=== PATIENT | male | born 1945 | race Caucasian/White ===

== ENCOUNTER → 2019-01-17 09:55 | Outpatient (CLI) | payer MEDICARE, SELFPAY ==
--- NOTE | 2019-01-17 | DI.NM.S_ITS ---
PROCEDURE: NM RENAL FUNCTION W LASIX RADIOPHARMACEUTICAL: 9.5 mCi Tc-99m MAG3 IV and 40 mg furosemide IV. INDICATIONS: HYDRONEPHROSIS TECHNIQUE: The patient was hydrated orally before the examination was begun. After intravenous administration of Tc-99m MAG3, posterior abdominal radionuclide angiogram and sequential (1 minute each frame) renal images were obtained. A time-activity curve for each kidney was generated and analyzed. To evaluate for obstruction, the patient was given 40 mg furosemide via slow intravenous injection after the start of the examination. Sequential images were obtained for up to an additional 20 minutes. COMPARISON: Outside Film, CT, CT IVP, 10/23/2018, 10:57. [facility], CT, ABDOMEN/PELVIS WITH CONTRAST, 02/27/2012, 17:23. FINDINGS: Perfusion: There is normal vascular flow to left kidney. There is diminished flow to the right kidney. Morphology: Left kidney is normal in size and shape. Right kidney is small. No dilated collecting systems are seen. The ureters and bladder fill with tracer, and appear normal. Function: Both kidneys demonstrate normal cortical tracer uptake, with [id number] activity ranging from 3 to 5 minutes. The right kidney contributes 11.4% of total renal function. The left kidney contributes 88.6% of total renal function. Lasix stimulation: After diuretic administration, there is prompt clearance of tracer activity from the left renal collecting system. The half-time of emptying of tracer activity from the left pelvicaliceal system is 5.4 minutes. There is slow, progressive accumulation of tracer activity in the right renal collecting system. The half-time of emptying of this activity from the right renal collecting system is prolonged and greater than 20 minutes. Unable to calculated T1/2 for right kidney because of poor right renal function (not enough to exceted ureinary activity within the right renal pelvis). Normal emptying half-times are less than 10 minutes; borderline ranges are from 10 to 20 minutes. IMPRESSION: 1. Small obstructed right kidney with severely decreased left renal function. Right kidney contributes only 11.4% of total renal function. 2. Normal left renal function. No evidence for left renal obstruction. Dictated by: Dimitri Arriaga M.D. on 01/17/2019 at 12:50 Approved by: Dimitri Arriaga M.D. on 01/17/2019 at 13:01
== END ==
PROVIDERS: PCP Nurse Practitioner Family; Visit Provider Specialist
DX: N13.30 Unspecified hydronephrosis (principal); N28.89 Other specified disorders of kidney and ureter
CPT/HCPCS: 78708; A9562